=== PATIENT | female | born 1985 | race Caucasian/White ===

== ENCOUNTER 2021-11-30 07:47 | Emergency (ER) | payer BC, OTHER ==
[2021-11-30 08:25] LABS: Urine Blood 2+ (Negative); Urine Glucose Negative (Negative); Urine Protein Negative (Negative); Urine pH 7.5 (5.0-7.0)
[2021-11-30 08:30] LABS: Hematocrit 35.4 % (36.0-45.0); MCV 90.9 fL (80-100); MPV 8.1 fL (7.6-11.3)
[2021-11-30 08:46] LABS: Albumin 3.1 g/dL (3.4-5.0); Bilirubin Total 0.3 mg/dL (0.2-1.0); Potassium 3.7 mmol/L (3.5-5.1); Protein, Total 6.9 g/dL (6.4-8.2)
--- NOTE | 2021-11-30 09:46 | RAD REPORT ---
EXAM DESCRIPTION: US - 1St Trimest Single 1St Fetus - 11/30/2021 9:08 am CLINICAL HISTORY: with abdominal pain COMPARISON: None FINDINGS: The uterus measures 12 x 6 x 7 centimeters. A pole is present within the endometrium measuring 3 centimeters. Cardiac activity not visualized. No movement noted Right ovary not visualized secondary to overlying bowel gas. Left ovary is normal in size and echotex ture. It contains a 1.6 centimeters cyst. The right and left adnexal unremarkable No significant free fluid IMPRESSION: demise. Estimated gestational 10 weeks 0 days
--- NOTE | 2021-11-30 10:44 | EDPHYS ---
Physician Documentation [facility] Name: Addis Antoine Age: 36 yrs Sex: Female : 1985 Arrival Date: 11/30/2021 Time: 07:51 Bed 14 Private MD: ED Physician Teodoro Gutierrez HPI: 11/30 08:07 This 36 yrs old Female presents to ER via Ambulatory with complaints of Vaginal jr11 Bleeding, + Preg <12wks. 08:07 The patient presents to the emergency department with vaginal bleeding, that is light, jr11 with clots, x 2 weeks, saw OBGYN Dr Perry, quant rising appropriately, rec watchful waiting . The estimated gestational age is 7 weeks. course: care: at a clinic, private OB physician. Associated signs and symptoms: Pertinent negatives: abdominal pain, frequency, seizure. LMP 5. 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 - Social history:: Smoking status: Patient denies any tobacco usage or history of. ROS: 08:07 All other systems are negative. jr11 Exam: 08:07 Constitutional: This is a well developed, well nourished patient who is awake, alert, jr11 and in no acute distress. Head/Face: Normocephalic, atraumatic. Eyes: Extra-ocular motions intact. Lids and lashes normal. Conjunctiva and sclera are non-icteric and not injected. Cornea within normal limits. Periorbital areas with no swelling, redness, or edema. ENT: Nares patent. No nasal discharge, no septal abnormalities noted. Oropharynx with no redness, swelling, or masses, exudates, or evidence of obstruction, uvula midline. Mucous membranes moist. Neck: Trachea midline, no thyromegaly or masses palpated, and no cervical lymphadenopathy. Supple, full range of motion without nuchal rigidity, or vertebral point tenderness. No Meningismus. Cardiovascular: Regular rate and rhythm with a normal S1 and S2. No gallops, murmurs, or rubs. Normal PMI, no JVD. No pulse deficits. Respiratory: Lungs have equal breath sounds bilaterally, clear to auscultation and percussion. No rales, rhonchi or wheezes noted. No increased work of breathing, no retractions or nasal flaring. Abdomen/GI: Soft, non-tender, with normal bowel sounds. No distension or tympany. No guarding or rebound. No evidence of tenderness throughout. Back: No spinal tenderness. No costovertebral tenderness. Full range of motion. Skin: Warm, dry with normal turgor. Normal color with no rashes, no lesions, and no evidence of cellulitis. MS/ Extremity: Pulses equal, no cyanosis. Neurovascular intact. Full, normal range of motion. Neuro: Awake and alert, GCS 15, oriented to person, place, time, and situation. No gross motor or sensory deficits. Vital Signs: 07:59 BP 136 / 87; Pulse 97; Resp 15 S; Temp 97.9(O); Pulse Ox 100% on R/A; Weight 113.4 kg jg9 (R); Height 5 ft. 5 in. (165.10 cm) (R); Pain 7/10; 08:15 BP 133 / 88; Pulse 84; Resp 16 S; Pulse Ox 100% ; jg9 09:30 BP 117 / 64; Pulse 68; Resp 15 S; Pulse Ox 100% on R/A; Pain 5/10; jg9 10:45 BP 130 / 90; Pulse 78; Resp 18 S; Pulse Ox 97% on R/A; jg9 07:59 Body Mass Index 41.60 (113.40 kg, 165.10 cm) jg9 MDM: 08:04 Patient medically screened. jr11 08:07 Differential diagnosis: threatened Ab. Data reviewed: vital signs, nurses notes. 10:42 ED course: Pt with a missed AB, will let OBGYN know, call. Pt will be given pain 11 medication, TMP checked.. 11/30 08:07 Order name: HCG-Quantitative; Complete Time: 09:34 jr 11/30 08:07 Order name: CBC w/o diff; Complete Time: 09:34 jr11 11/30 08:07 Order name: CMP; Complete Time: 09:34 jr11 11/30 08:07 Order name: Abo/rh Typing; Complete Time: 09:34 jr11 11/30 08:25 Order name: Urine Dipstick-Ancillary; Complete Time: 09:34 EDMS 11/30 08:25 Order name: Urine --Ancillary (enter results) eb 11/30 09:09 Order name: 1St Trimest Single 1St Fetus; Complete Time: 10:39 EDMS 11/30 09:20 Order name: Transvaginal OB EDMS Administered Medications: No medications were administered Point of Care Testing: Urine : 08:26 hCG Reading: Positive; Control Reading: Positive; jg9 08:26 Exp: 04/18/2023; Lot #: [id number]; jg9 Disposition Summary: 11/30/21 10:43 Discharge Ordered Location: Home jr11 Condition: Stable jr11 Diagnosis - Missed jr11 - Other specified abnormal uterine and vaginal bleeding jr11 Followup: jr11 - With: Private Physician - When: - Reason: Recheck today's complaints Discharge Instructions: - Discharge Summary Sheet jr11 Forms: - Medication Reconciliation Form jr11 - Thank You Letter jr11 - Antibiotic Education jr11 - Prescription Opioid Use jr11 Signatures: Dispatcher [employer] Lashell Sinha, RN RN jg9 Teodoro Gutierrez MD MD jr11 Corrections: (The following items were deleted from the chart) 08:58 08:07 OB Limited+US.RAD.BRZ ordered. EDMS EDMS 09:08 08:58 Pelvis Complete ordered. EDMS EDMS 09:20 09:08 TRANSVAG OB ordered. EDMS EDMS
--- NOTE | 2021-11-30 10:44 | ER ---
Nurse's Notes [facility] Name: Addis Antoine Age: 36 yrs Sex: Female : 1985 Arrival Date: 11/30/2021 Time: 07:51 Bed 14 Private MD: Diagnosis: Missed ;Other specified abnormal uterine and vaginal bleeding Presentation: 11/30 07:59 Chief complaint: Patient states: I have been having some bleeding for 2 weeks on and jg9 off and this morning I started having cramping and passed major clots-denied going through multiple pads reports she just came right over. 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 Patient reports lower quadrant pain 11/26. Coronavirus screen: Vaccine status: Patient reports receiving the 2nd dose of the covid vaccine. Ebola Screen: Patient negative for fever greater than or equal to 101.5 degrees Fahrenheit, and additional compatible Ebola Virus Disease symptoms Patient denies exposure to infectious person. Patient denies travel to an Ebola-affected area in the 21 days before illness onset. Initial Sepsis Screen: Does the patient meet any 2 criteria? No. Patient's initial sepsis screen is negative. Does the patient have a suspected source of infection? No. Patient's initial sepsis screen is negative. Risk Assessment: Do you want to hurt yourself or someone else? Patient reports no desire to harm self or others. Onset of symptoms is unknown. 07:59 Method Of Arrival: Ambulatory 9 07:59 Acuity: OLAYINKA 3 jg9 Triage Assessment: 08:02 General: Appears in no apparent distress. Behavior is calm, cooperative. Pain: jg9 Complains of pain in right lower quadrant and left lower quadrant Pain currently is 7 out of 10 on a pain scale. : Reports vaginal bleeding that is with clots. 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 - Social history:: Smoking status: Patient denies any tobacco usage or history of. Screenin:02 Abuse screen: Denies threats or abuse. Denies injuries from another. Nutritional jg9 screening: No deficits noted. Tuberculosis screening: No symptoms or risk factors identified. Fall Risk None identified. Assessment: 08:03 Obstetrical Assessment: Patient reports abdominal cramping. jg9 09:31 Reassessment: No changes from previously documented assessment. Patient and/or family jg9 updated on plan of care and expected duration. Pain level reassessed. Patient is alert, oriented x 3, equal unlabored respirations, skin warm/dry/pink. Vital Signs: 07:59 BP 136 / 87; Pulse 97; Resp 15 S; Temp 97.9(O); Pulse Ox 100% on R/A; Weight 113.4 kg jg9 (R); Height 5 ft. 5 in. (165.10 cm) (R); Pain 7/10; 08:15 BP 133 / 88; Pulse 84; Resp 16 S; Pulse Ox 100% ; jg9 09:30 BP 117 / 64; Pulse 68; Resp 15 S; Pulse Ox 100% on R/A; Pain 5/10; jg9 10:45 BP 130 / 90; Pulse 78; Resp 18 S; Pulse Ox 97% on R/A; jg9 07:59 Body Mass Index 41.60 (113.40 kg, 165.10 cm) jg9 Vitals: 08:08 Heart Tones \T\170. jg9 ED Course: 07:51 Patient arrived in ED. mr 07:53 Lashell Scales, SHER is Primary Nurse. jg9 07:54 Teodoro Gutierrez MD is Attending Physician. jr11 08:01 Triage completed. jg9 08:02 Arm band placed on right wrist. jg9 08:02 Patient has correct armband on for positive identification. Bed in low position. Call jg9 light in reach. Side rails up X 1. 08:15 Inserted saline lock: 22 gauge in right antecubital area, using aseptic technique. jg9 Blood collected. 08:26 Urine --Ancillary (enter results) Sent. jg9 08:27 No apparent distress. Resting quietly. jg9 08:35 Patient taken to ultrasound. via wheelchair. jg9 09:09 1St Trimest Single 1St Fetus In Process Unspecified. EDMS 09:27 Transvaginal OB In Process Unspecified. EDMS 09:38 No apparent distress. Resting quietly. jg9 10:57 No provider procedures requiring assistance completed. jg9 10:58 IV discontinued. jg9 Administered Medications: No medications were administered Medication: 10:58 VIS not applicable for this client. jg9 Point of Care Testing: Urine : 08:26 hCG Reading: Positive; Control Reading: Positive; jg9 08:26 Exp: 04/18/2023; Lot #: [id number]; jg9 Outcome: 10:43 Discharge ordered by . jr11 10:58 Discharged to home ambulatory. jg9 10:58 Condition: unchanged 10:58 Discharge instructions given to patient, Instructed on discharge instructions, follow up and referral plans. Demonstrated understanding of instructions, follow-up care. 11:01 Patient left the ED. jg9 Signatures: Dispatcher [employer] Debi Bernardo Jennifer, RN RN jg9 Teodoro Gutierrez MD MD jr11
[2021-11-30 11:08] VITALS: TEMP 97.9
[2021-11-30 11:13] VITALS: BP 130/90; O2SAT 97
--- NOTE | 2021-11-30 17:32 | RAD REPORT ---
EXAM DESCRIPTION: US - Transvaginal OB - 11/30/2021 9:26 am CLINICAL HISTORY: with abdominal pain COMPARISON: None FINDINGS: The uterus measures 12 x 6 x 7 centimeters. A pole is present within the endometrium measuring 3 centimeters. Cardiac activity not visualized. No movement noted Right ovary not visualized secondary to overlying bowel gas. Left ovary is normal in size and echotex ture. It contains a 1.6 centimeters cyst. The right and left adnexal unremarkable No significant free fluid IMPRESSION: demise. Estimated gestational 10 weeks 0 days
== END 2021-11-30 11:01 | disposition home or self-care (01) ==
LOC: ER 07:47
DX: O02.1 Missed abortion (principal); Z3A.01 Less than 8 weeks gestation of pregnancy
CPT/HCPCS: 36415; 76801; 76817; 80053; 81003; 81025; 84702; 85027; 86900; 86901; 99284